=== PATIENT | female | born 2000 | race African-American/Black ===

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

== ENCOUNTER 2022-01-03 19:16 | Emergency (ER) | payer OTHER ==
[2022-01-03 19:32] VITALS: BP 114/75; PULSE 100; RESP 18; TEMP 99.1; BMI 38.4
== END 2022-01-03 20:32 | disposition home or self-care (01) ==
LOC: JER 19:16
DX: L73.1 Pseudofolliculitis barbae (principal)
CPT/HCPCS: 99281-25

== ENCOUNTER 2022-11-24 14:14 | Emergency (ER) | payer OTHER ==
[2022-11-24 14:41] VITALS: BP 103/82; PULSE 87; RESP 18; TEMP 98.3; BMI 51.2
[2022-11-24] MEDS ORDERED: KETOROLAC TROMETHAMINE 30 MG/1 ML VIAL IM ONE (15:29)
[2022-11-24] MEDS ORDERED: AMOX TR/POT CLAV 875MG/125MG TABLETS (FP) PO ONE (15:35)
[2022-11-24] MEDS ORDERED: KETOROLAC TROMETHAMINE 30 MG/1 ML VIAL ONE (15:44)
[2022-11-24] MEDS ORDERED: AMOX TR/POT CLAV 875MG/125MG TABLETS (FP) ONE ×2 (15:44)
== END 2022-11-24 15:51 | disposition home or self-care (01) ==
LOC: JERFT 14:14 → JER 14:14 → JERFT 15:51
PROC: 3E0233Z Introduction of Anti-inflammatory into Muscle, Percutaneous Approach (ICD-10-PCS; principal; 2022-11-24)
DX: K08.89 Other specified disorders of teeth and supporting structures (principal)
CPT/HCPCS: 99284-25